=== PATIENT | female | born 1975 | race Caucasian/White ===

== ENCOUNTER 2017-08-31 00:46 | Emergency (ER) | payer SELFPAY ==
[2017-08-31] MEDS ORDERED: Adenosine 6 MG/2 ML SDV ONE (00:49)
[2017-08-31] MEDS ORDERED: LORazepam 2 MG/ML MDV IVPUSH ONE ×2 (00:56→02:45)
[2017-08-31] MEDS ORDERED: Adenosine 6 MG/2 ML SDV IVPUSH ONE (00:56)
[2017-08-31] MEDS ORDERED: Sodium Chloride 0.9% 1,000 ML IV ONE ×2 (00:57→02:44)
[2017-08-31 01:30] LABS: CHLORIDE,CL 110 mmol/L (98-110); SODIUM,NA 142 mmol/L (136-146)
--- NOTE | 2017-08-31 01:30 | EDM.PDOC ---
ED HPI GENERAL MEDICAL PROBLEM - General Chief Complaint: Chest Pain Stated Complaint: CHEST PAIN, SHORTNESS OF BREATH Time Seen by Provider: 08/31/17 01:09 Source of Information: Reports: Patient History Limitations: Reports: No Limitations - History of Present Illness INITIAL COMMENTS - FREE TEXT/NARRATIVE: HISTORY AND PHYSICAL: History of present illness: [41-year-old female with a history of morbid obesity and multiple prior episodes of SVT. Patient now presents emergency department with palpitations and shortness of breath certain that she is having an episode of SVT. Patient states that a half hour prior to arrival she felt the onset of palpitations and shortness of breath. She has not been ill. She has no evidence of respiratory infection. Patient has no history of heart disease. She's had no exertional chest pain recently. Patient has had multiple episodes of SVT in the past however she is almost always able to resolve it by Valsalva maneuvers. Multiple Valsalva maneuvers were unsuccessful this evening so patient came to the emergency department. The last time she required intervention to resolve an episode of SVT was 10 years ago. Review of systems: As per history of present illness and below otherwise all systems reviewed and negative. Past medical history: As per history of present illness and as reviewed below otherwise noncontributory. Surgical history: As per history of present illness and as reviewed below otherwise noncontributory. Social history: No reported history of drug or alcohol abuse. Family history: As per history of present illness and as reviewed below otherwise noncontributory. Physical exam: Anxious appearing 41-year-old female with tachycardia at 220 the QRS morphology of which is consistent with SVT. Supple neck, Clear lungs, no clinical fever, benign abdomen normal extremities with no edema nonfocal neurologic exam HEENT: Atraumatic, normocephalic, pupils reactive, negative for conjunctival pallor or scleral icterus, mucous membranes moist, throat clear, neck supple, nontender, trachea midline. Lungs: Clear to auscultation, breath sounds equal bilaterally, chest nontender. Heart: S1S2, regular, negative for clicks, rubs, or JVD. Abdomen: Soft, nondistended, nontender. Negative for masses or hepatosplenomegaly. Negative for costovertebral tenderness. Pelvis: Stable nontender. Genitourinary: Deferred. Rectal: Deferred. Extremities: Atraumatic, negative for cords or calf pain. Neurovascular unremarkable. Neuro: Awake, alert, oriented. Cranial nerves unremarkable. Motor unremarkable throughout. Exam nonfocal. Diagnostics: [Initial EKG with SVT at 227 normal axis no STEMI nonspecific ST and T-wave repolarization abnormalities. Interpreted by me Repeat EKG at 1:04 AM with normal sinus tachycardia at 106 normal axis no STEMI nonspecific ST findings. Chest x-ray no acute disease interpreted by me] Therapeutics: [Procedure: Infusion of adenosine by MARIETTA Myers Patient verbally consents for adenosine treatment of SVT. 6 mg of adenosine rapid IV push by me with immediate 10 mL normal saline flush upstream in her IV line. After several seconds patient converted to normal sinus rhythm with a tachycardia in the 140s. As patient relaxed her heart rate came down. On reevaluation she is comfortable and asymptomatic. Patient tolerated procedure well without complication. Repeat EKG normal sinus rhythm at 106] Impression: [Supraventricular tachycardia] Plan: [Signs and symptoms consistent with SVT a known recurrent diagnosis for this patient. Refractory to home measures of Valsalva maneuvers. Converted with adenosine IV push by me, see procedure. Full workup pending. Anticipate observing patient an outpatient follow-up if workup is unremarkable patient continues to be asymptomatic. She has a history of anxiety and Clearly contributory anxiety component addressed with Ativan IV and improved on reevaluation. On reevaluation patient improved she is smiling and asymptomatic and feels baseline. Patient describes that she was previously on metoprolol 5 mg daily but for some reason stopped taking. Metoprolol given in ED and prescribed patient will follow up with PCP and cardiology. No further workup or treatment indicated. Patient agrees with outpatient follow-up and Strict return precautions given Critical care 32 minutes Definitive disposition and diagnosis as appropriate pending reevaluation and review of above. Middle Chest Pain Score (Numeric/FACES): 7 - Related Data Allergies Allergy/AdvReac Type Severity Reaction Status Date / Time No Known Allergies Allergy Verified 08/31/17 01:09 Home Meds: Home Meds Dextroamphetamine/Amphetamine [Adderall] 20 mg PO DAILY 08/31/17 [History] FLUoxetine [PROzac] 40 mg PO DAILY 08/31/17 [History] Iron 0 mg PO DAILY 08/31/17 [History] Liraglutide [Victoza] 1.8 mg SUBCUT DAILY 08/31/17 [History] Losartan [Cozaar] 100 mg PO DAILY 08/31/17 [History] Magnesium 0 mg PO DAILY 08/31/17 [History] Metoprolol Succinate [Toprol XL] 25 mg PO DAILY #30 tab.er 08/31/17 [Rx] Multivitamins [Tab-A-Mercedes] 0 mg PO DAILY 08/31/17 [History] Omeprazole/Sodium Bicarbonate [Zegerid 20 MG] 40 mg PO DAILY 08/31/17 [History] Past Medical History Cardiovascular History: Reports: Hypertension Other Cardiovascular History: PSVT Genitourinary History: Reports: None Psychiatric History: Reports: Anxiety, Depression Other Endocrine/Metabolic History: Elevated insulin Hematologic History: Reports: Anemia Other Hematologic History: no transfusion - Infectious Disease History Infectious Disease History: Reports: Chicken Pox, MRSA, Shingles - Past Surgical History Cardiovascular Surgical History: Reports: None Female Surgical History: Reports: Tubal Ligation Endocrine Surgical History: Reports: None Social & Family History - Family History Family Medical History: Noncontributory - Tobacco Use Smoking Status *Q: Never Smoker Second Hand Smoke Exposure: No - Caffeine Use Caffeine Use: Reports: Coffee Caffeine Use Comment: "on occasion" - Recreational Drug Use Recreational Drug Use: No ED ROS GENERAL - Review of Systems Review Of Systems: See Below (History of present illness) ED EXAM, GENERAL - Physical Exam Exam: See Below (History of present illness) Course - Vital Signs Last Recorded V/S: Last Vital Signs Temp 35.8 C 08/31/17 00:52 Pulse 104 H 08/31/17 03:13 Resp 20 08/31/17 00:52 BP 122/82 08/31/17 03:13 Pulse Ox 100 08/31/17 00:52 - Orders/Labs/Meds Orders: Active Orders 24 hr Category Date Time Status EKG 12 Lead [EKG Documentation Completion] [RC] STAT Care 08/31/17 01:20 Active EKG Documentation Completion [RC] STAT Care 08/31/17 00:58 Active Chest 1V Frontal [CR] Stat Exams 08/31/17 00:58 Taken Labs: Laboratory Tests 08/31/17 08/31/17 08/31/17 Range/Units 01:03 01:03 01:03 WBC 7.95 (4.0-11.0) K/uL RBC 3.99 L (4.30-5.90) M/uL Hgb 10.8 L (12.0-16.0) g/dL Hct 33.7 L (36.0-46.0) % MCV 84.5 (80.0-98.0) fL MCH 27.1 (27.0-32.0) pg MCHC 32.0 (31.0-37.0) g/dL RDW Std Deviation 42.5 (28.0-62.0) fl RDW Coeff of Adela 14 (11.0-15.0) % Plt Count 249 (150-400) K/uL MPV 10.60 (7.40-12.00) fL Neut % (Auto) 61.4 (48.0-80.0) % Lymph % (Auto) 27.5 (16.0-40.0) % Cherry % (Auto) 8.8 (0.0-15.0) % Eos % (Auto) 1.8 (0.0-7.0) % Baso % (Auto) 0.5 (0.0-1.5) % Neut # (Auto) 4.9 (1.4-5.7) K/uL Lymph # (Auto) 2.2 (0.6-2.4) K/uL Cherry # (Auto) 0.7 (0.0-0.8) K/uL Eos # (Auto) 0.1 (0.0-0.7) K/uL Baso # (Auto) 0.0 (0.0-0.1) K/uL Sodium 142 (136-146) mmol/L Potassium 2.9 L (3.5-5.1) mmol/L Chloride 110 (98-110) mmol/L Carbon Dioxide 21 (21-31) mmol/L BUN 12 (6.0-23.0) mg/dL Creatinine 0.9 (0.6-1.5) mg/dL Est Cr Clr Drug Dosing 84.66 mL/min Estimated GFR (MDRD) > 60.0 ml/min Glucose 101 (60-110) mg/dL Calcium 8.8 (8.8-10.8) mg/dL Total Bilirubin 0.5 (0.1-1.5) mg/dL AST 13 (5-40) IU/L ALT 19 (8-54) IU/L Alkaline Phosphatase 56 (40-150) Troponin I < 0.10 (0.0-0.29) NG/ML Total Protein 6.9 (6.0-8.0) g/dL Albumin 3.9 (3.5-5.0) g/dL Globulin 3.0 (2.0-3.5) g/dL Albumin/Globulin Ratio 1.3 (1.3-2.8) Meds: Medications Discontinued Medications Generic Name Dose Route Start Last Admin Trade Name Bud PRN Reason Stop Dose Admin Adenosine Confirm 08/31/17 00:49 08/31/17 00:54 Adenocard Administered 08/31/17 00:50 6 mg Dose Administration 6 mg .ROUTE .STK-MED ONE Adenosine 6 mg 08/31/17 00:56 08/31/17 01:06 Adenocard IVPUSH 08/31/17 00:57 6 mg NOW ONE Administration Sodium Chloride 1,000 mls @ 999 mls/hr 08/31/17 00:57 08/31/17 01:06 Normal Saline IV 08/31/17 01:57 999 mls/hr .Bolus ONE Administration Sodium Chloride 1,000 mls @ 999 mls/hr 08/31/17 02:44 08/31/17 02:52 Normal Saline IV 08/31/17 03:44 999 mls/hr .Bolus ONE Administration Lorazepam 0.5 mg 08/31/17 00:56 08/31/17 01:03 Ativan IVPUSH 08/31/17 00:57 0.5 mg ONETIME ONE Administration Lorazepam 0.5 mg 08/31/17 02:45 08/31/17 02:52 Ativan IVPUSH 08/31/17 02:46 0.5 mg ONETIME ONE Administration Metoprolol Tartrate 25 mg 08/31/17 03:08 08/31/17 03:13 Lopressor PO 08/31/17 03:09 25 mg ONETIME ONE Administration Potassium Chloride 60 meq 08/31/17 02:45 08/31/17 02:53 Klor-Con M20 PO 08/31/17 02:46 60 meq ONETIME ONE Administration Departure - Departure Time of Disposition: 03:06 Disposition: Home, Self-Care 01 Condition: Good Clinical Impression: SVT (supraventricular tachycardia), Paroxysmal supraventricular tachycardia Prescriptions: Metoprolol Succinate [Toprol XL] 25 mg PO DAILY #30 tab.er Referrals: PCP,None [Primary Care Provider] - Tang Green MD [Physician] - Forms: ED Department Discharge Additional Instructions: You experience an episode of SVT tonight. You are familiar that this means supraventricular tachycardia. As you're vasovagal maneuvers at home were unsuccessful in converting to a normal sinus rhythm, adenosine was used via IV push to correct the SVT. Your workup was unremarkable and showed no electrolyte abnormalities which might predispose you to arrhythmia. As you are stable on multiple reexamines its appropriate and typical to have you follow-up as an outpatient with your open hearth helper for reevaluation and to discuss whether further treatment, surveillance, or interventions are necessary. - My Orders Last 24 Hours: My Active Orders 08/31/17 00:58 EKG Documentation Completion [RC] STAT Chest 1V Frontal [CR] Stat 08/31/17 01:20 EKG 12 Lead [EKG Documentation Completion] [RC] STAT - Assessment/Plan Last 24 Hours: My Active Orders 08/31/17 00:58 EKG Documentation Completion [RC] STAT Chest 1V Frontal [CR] Stat 08/31/17 01:20 EKG 12 Lead [EKG Documentation Completion] [RC] STAT
[2017-08-31] MEDS ORDERED: Potassium Chloride 20 MEQ Tab.ER PO ONE (02:45)
[2017-08-31] MEDS ORDERED: Metoprolol Tartrate 25 MG Tab PO ONE (03:08)
[2017-08-31 04:37] VITALS: BP 128/84
--- NOTE | 2017-08-31 16:57 | CR ---
EXAM DATE: 08/31/17 PATIENT'S AGE: 41 Patient: KELECHI DIOR Facility: [place], [place] Site . Site : [id number] Study: XRay Chest [id number]/3/2017 1:22:45 AM Ordering Physician: Doctor Waters Final Report: HISTORY: Chest pain, SVT. FINDINGS: AP portable chest radiograph demonstrates EKG leads overlying the thorax. Cardiac silhouette is at the upper limits of normal. Pulmonary vasculature is free of cephalization. No consolidation or pleural effusion is seen. IMPRESSION: No acute cardiopulmonary disease. Dictated by Alyse Perla MD @ 08/31/2017 1:24:24 AM Dictated by: Alyse Perla MD @ 08/31/2017 01:24:32 (Electronic Signature) Report Signed by Proxy. [email or web address]
== END 2017-08-31 04:19 | disposition home or self-care (01) ==
LOC: MW.ED 00:46
DX: I47.1 Supraventricular tachycardia (principal); I10 Essential (primary) hypertension; F32.9 Major depressive disorder, single episode, unspecified; E66.01 Morbid (severe) obesity due to excess calories; Z86.2 Personal history of diseases of the blood and blood-forming organs and certain disorders involving the immune mechanism; Z98.51 Tubal ligation status; Z79.899 Other long term (current) drug therapy
CPT/HCPCS: 36415; 71010; 80053; 84484; 85025; 93005; 96361; 96374; 96375; 96376; 99285; A9270; J0153; J2060; J7040; 99284